=== PATIENT | male | born 1945 | race Caucasian/White ===

== ENCOUNTER 2021-07-05 12:16 | Inpatient (IN) ==
[2021-07-05 12:42] LABS: ABS Eosinophils 0.1 10^3/ul (0-0.6); ABS Lymphocytes 1.1 10^3/ul (1.0-4.8); ABS Monocytes 0.7 10^3/ul (0-0.8); ABS Neutrophils 10.6 10^3/ul (1.5-7.7); Eosinophil % 0.8 %; Hematocrit 43 % (42-52); Hemoglobin 13.6 g/dL (14.0-18.0); Lymphocyte % 8.9 %; Mean Corpuscular HGB Conc 32 g/dL (31-36); Mean Corpuscular Hemoglobin 28 pg (27-31); Mean Corpuscular Volume 89 fL (80-94); Mean Platelet Volume 9.7 fL (7.4-10.4); Platelet Count 158 10^3/uL (150-450); Red Cell Distribution Width 15 % (10-15); White Blood Count 12.5 10^3/uL (3.5-10.8)
[2021-07-05 13:28] LABS: Albumin 3.6 g/dL (3.2-5.2); Albumin/Globulin Ratio 0.9 (1-3); Calcium 9.3 mg/dL (8.6-10.3); Globulin 4.1 g/dL (2-4); Potassium 4.1 mmol/L (3.5-5.0); Total Bilirubin 0.5 mg/dL (0.2-1.0); Total Protein 7.7 g/dL (6.4-8.9); eGFR CKD-EPI 57.5 (>60)
[2021-07-05] MEDS ORDERED: Cefepime 1 GM in Dextrose 1 GM/50 ML BAG IV ONE (13:59)
[2021-07-05 14:10] LABS: High Sensitivity Troponin 1 Hr 13 pg/mL (<20)
[2021-07-05] MEDS ORDERED: NS 0.9% 1000 ml BAG 2,180 ML IV ONE (14:15)
[2021-07-05] MEDS ORDERED: NS 0.9% 250 ml 250 ML ONE (14:56)
[2021-07-05] MEDS ORDERED: Vancomycin 1,500 MG in NS 0.9% 250 ml 250 ML IVPB ONE (15:00)
[2021-07-05 16:31] LABS: Urine Appearance Cloudy; Urine Bilirubin Negative (Negative); Urine Blood 1+ (Negative); Urine Color Yellow; Urine Glucose Negative (Negative); Urine Ketones Negative (Negative); Urine Nitrite Negative (Negative); Urine Protein Negative (Negative); Urine Specific Gravity 1.015 (1.002-1.030); Urine Urobilinogen Negative (Negative)
[2021-07-05 16:40] LABS: Urine Amorphous Crystals Present (Absent); Urine Bacteria 1+ (Absent); Urine Red Blood Cell 3+(>10/hpf) (Absent); Urine Squamous Epithelial Cell Present (Absent); Urine White Blood Cell 1+(6-10/hpf) (Absent)
[2021-07-05] MEDS ORDERED: Lactated Ringers 1000 ml BAG 1,000 ML IV ONE (16:52)
[2021-07-05 17:34] LABS: Magnesium 2.6 mg/dL (1.9-2.7); Phosphorus 3.6 mg/dL (2.5-5.0)
[2021-07-05 17:49] LABS: TSH Ultra Thyroid Stim Horm 2.11 mcIU/mL (0.34-5.60)
[2021-07-05] MEDS ORDERED: Zosyn per Pharmacy NOTE FOLLOW UP SCH (18:00)
[2021-07-05] MEDS ORDERED: Vancomycin per Pharmacy 1 EA NOTE FOLLOW UP SCH (18:00)
[2021-07-05] MEDS ORDERED: Zosyn 3.375 GM IV - ED ONCE IV ONE (18:30)
[2021-07-05 20:06] LABS: Urine Osmo 599 mOsm/kg (150-1150)
[2021-07-05] MEDS: Enoxaparin 40 MG/0.4 ML SYR SUBCUT SCH (22:07)
[2021-07-05] MEDS: D5W 1/2 NS 1000 ml BAG 1,000 ML IV SCH (22:21)
[2021-07-06] MEDS: ZOSYN 3.375 GM Q8H per EXTENDED INFUSION IV SCH ×4 (00:39→23:15)
[2021-07-06 05:21] LABS: ABS Basophils 0.1 10^3/ul (0-0.2); ABS Eosinophils 0.3 10^3/ul (0-0.6); ABS Lymphocytes 1.1 10^3/ul (1.0-4.8); ABS Monocytes 0.6 10^3/ul (0-0.8); ABS Neutrophils 5.5 10^3/ul (1.5-7.7); Eosinophil % 4.1 %; Hematocrit 36 % (42-52); Hemoglobin 11.7 g/dL (14.0-18.0); Lymphocyte % 14.5 %; Mean Corpuscular HGB Conc 33 g/dL (31-36); Mean Corpuscular Hemoglobin 29 pg (27-31); Mean Corpuscular Volume 89 fL (80-94); Mean Platelet Volume 9.4 fL (7.4-10.4); Platelet Count 117 10^3/uL (150-450); Red Blood Count 4.05 10^6 /uL (4.18-5.48); Red Cell Distribution Width 15 % (10-15); White Blood Count 7.6 10^3/uL (3.5-10.8)
[2021-07-06 05:42] LABS: Calcium 8.1 mg/dL (8.6-10.3); Potassium 3.7 mmol/L (3.5-5.0); eGFR CKD-EPI 77.6 (>60)
[2021-07-06] MEDS ORDERED: Vancomycin 750 MG in NS 0.9% 250 ML IVPB SCH (06:30)
[2021-07-06] MEDS: D5W 1/2 NS 1000 ml BAG 1,000 ML IV SCH ×2 (08:17→19:13)
[2021-07-06] MEDS: Amantadine SOLN ORALSYR 10 mg/ml PO SCH ×2 (10:12→21:49)
[2021-07-06] MEDS: Vancomycin 1,000 MG in NS 0.9% 250 ml 250 ML IVPB SCH (18:08)
[2021-07-06] MEDS: Enoxaparin 40 MG/0.4 ML SYR SUBCUT SCH (21:44)
[2021-07-07 05:25] LABS: Hematocrit 37 % (42-52); Hemoglobin 11.9 g/dL (14.0-18.0); Mean Corpuscular HGB Conc 32 g/dL (31-36); Mean Corpuscular Hemoglobin 29 pg (27-31); Mean Corpuscular Volume 89 fL (80-94); Mean Platelet Volume 9.2 fL (7.4-10.4); Platelet Count 110 10^3/uL (150-450); Red Blood Count 4.16 10^6 /uL (4.18-5.48); Red Cell Distribution Width 14 % (10-15); White Blood Count 6.9 10^3/uL (3.5-10.8)
[2021-07-07 05:41] LABS: Phosphorus 2.6 mg/dL (2.5-5.0); Potassium 3.3 mmol/L (3.5-5.0); eGFR CKD-EPI 92.4 (>60)
[2021-07-07] MEDS: Vancomycin 1,000 MG in NS 0.9% 250 ml 250 ML IVPB SCH ×2 (05:55→17:18)
[2021-07-07] MEDS: Levothyroxine 100 MCG/5 ML VIAL IV SCH (05:55)
[2021-07-07] MEDS: KCL 20 MEQ/100 ML IVPREMIX 20 MEQ/100 ML BAG IV SCH ×3 (08:12→17:08)
[2021-07-07] MEDS: Amantadine SOLN ORALSYR 10 mg/ml PO SCH ×2 (10:22→20:57)
[2021-07-07] MEDS: ZOSYN 3.375 GM Q8H per EXTENDED INFUSION IV SCH ×2 (10:22→18:44)
[2021-07-07] MEDS: D5W 1/2 NS 1000 ml BAG 1,000 ML IV SCH (16:52)
[2021-07-07] MEDS: Enoxaparin 40 MG/0.4 ML SYR SUBCUT SCH (20:57)
[2021-07-08] MEDS: ZOSYN 3.375 GM Q8H per EXTENDED INFUSION IV SCH ×3 (00:17→16:28)
[2021-07-08] MEDS ORDERED: Vancomycin Trough Check NOTE FOLLOW UP ONE (05:30)
[2021-07-08 06:26] LABS: ABS Basophils 0.1 10^3/ul (0-0.2); ABS Eosinophils 0.4 10^3/ul (0-0.6); ABS Lymphocytes 1.3 10^3/ul (1.0-4.8); ABS Monocytes 0.7 10^3/ul (0-0.8); ABS Neutrophils 3.7 10^3/ul (1.5-7.7); Eosinophil % 6.4 %; Hematocrit 36 % (42-52); Hemoglobin 11.8 g/dL (14.0-18.0); Lymphocyte % 20.9 %; Mean Corpuscular HGB Conc 33 g/dL (31-36); Mean Corpuscular Hemoglobin 29 pg (27-31); Mean Corpuscular Volume 88 fL (80-94); Mean Platelet Volume 9.3 fL (7.4-10.4); Platelet Count 110 10^3/uL (150-450); Red Blood Count 4.13 10^6 /uL (4.18-5.48); Red Cell Distribution Width 14 % (10-15); White Blood Count 6.1 10^3/uL (3.5-10.8)
[2021-07-08 06:51] LABS: Calcium 7.9 mg/dL (8.6-10.3); Magnesium 1.9 mg/dL (1.9-2.7); Potassium 3.3 mmol/L (3.5-5.0); eGFR CKD-EPI 92.4 (>60)
[2021-07-08] MEDS ORDERED: Magnesium Sulfate IV 1GM/100ML 1 GM/100 ML BAG IV ONE (06:54)
[2021-07-08] MEDS: Vancomycin 1,000 MG in NS 0.9% 250 ml 250 ML IVPB SCH ×2 (07:00→18:15)
[2021-07-08] MEDS: Levothyroxine 100 MCG/5 ML VIAL IV SCH (07:05)
[2021-07-08] MEDS: KCL 20 MEQ/100 ML IVPREMIX 20 MEQ/100 ML BAG IV SCH ×3 (08:25→12:11)
[2021-07-08] MEDS: Amantadine SOLN ORALSYR 10 mg/ml PO SCH ×2 (08:25→19:42)
[2021-07-08] MEDS ORDERED: D5W 1000 ml BAG 1,000 ML IV SCH (09:00)
[2021-07-08 15:17] LABS: Calcium 8.1 mg/dL (8.6-10.3); Potassium 4.2 mmol/L (3.5-5.0); eGFR CKD-EPI 90.5 (>60)
[2021-07-08] MEDS: Nystatin SUSPENSION 100,000 UNITS/ML UDC PO SCH ×2 (16:30→19:42)
[2021-07-08] MEDS: D5W 1000 ml BAG 1,000 ML IV SCH (17:51)
[2021-07-08] MEDS: Enoxaparin 40 MG/0.4 ML SYR SUBCUT SCH (19:42)
[2021-07-09 01:03] LABS: Calcium 7.9 mg/dL (8.6-10.3); Magnesium 2.1 mg/dL (1.9-2.7); Potassium 3.6 mmol/L (3.5-5.0); eGFR CKD-EPI 90.2 (>60)
[2021-07-09] MEDS: ZOSYN 3.375 GM Q8H per EXTENDED INFUSION IV SCH ×3 (01:10→16:48)
[2021-07-09] MEDS: Vancomycin 750 MG in NS 0.9% 250 ML IVPB SCH ×2 (06:23→18:01)
[2021-07-09] MEDS: Levothyroxine 100 MCG/5 ML VIAL IV SCH (06:23)
[2021-07-09 08:02] LABS: Calcium 7.8 mg/dL (8.6-10.3); Phosphorus 2.8 mg/dL (2.5-5.0); Potassium 3.5 mmol/L (3.5-5.0); eGFR CKD-EPI 90.2 (>60)
[2021-07-09 08:08] LABS: PCO2 Arterial 31 mmHg (35-45); PO2 Arterial 85 mmHg (80-100)
[2021-07-09 08:09] LABS: ABS Basophils 0.1 10^3/ul (0-0.2); ABS Eosinophils 0.3 10^3/ul (0-0.6); ABS Lymphocytes 1.4 10^3/ul (1.0-4.8); ABS Monocytes 0.6 10^3/ul (0-0.8); ABS Neutrophils 3.5 10^3/ul (1.5-7.7); Eosinophil % 5.9 %; Hematocrit 33 % (42-52); Hemoglobin 10.9 g/dL (14.0-18.0); Lymphocyte % 23.2 %; Mean Corpuscular HGB Conc 33 g/dL (31-36); Mean Corpuscular Hemoglobin 29 pg (27-31); Mean Corpuscular Volume 88 fL (80-94); Mean Platelet Volume 9.4 fL (7.4-10.4); Platelet Count 97 10^3/uL (150-450); Red Cell Distribution Width 14 % (10-15); White Blood Count 5.9 10^3/uL (3.5-10.8)
[2021-07-09] MEDS: D5W 1000 ml BAG 1,000 ML IV SCH (10:20)
[2021-07-09] MEDS: KCL 20 MEQ/100 ML IVPREMIX 20 MEQ/100 ML BAG IV SCH ×2 (10:20→14:30)
[2021-07-09] MEDS: Nystatin SUSPENSION 100,000 UNITS/ML UDC PO SCH ×4 (10:21→21:37)
[2021-07-09] MEDS: Amantadine SOLN ORALSYR 10 mg/ml PO SCH ×2 (10:21→21:37)
[2021-07-09] MEDS: Enoxaparin 40 MG/0.4 ML SYR SUBCUT SCH (21:37)
[2021-07-10] MEDS: ZOSYN 3.375 GM Q8H per EXTENDED INFUSION IV SCH ×4 (00:39→23:45)
[2021-07-10] MEDS: Levothyroxine 100 MCG/5 ML VIAL IV SCH (04:58)
[2021-07-10] MEDS: Vancomycin 750 MG in NS 0.9% 250 ML IVPB SCH ×2 (05:31→17:38)
[2021-07-10 05:35] LABS: ABS Basophils 0.1 10^3/ul (0-0.2); ABS Eosinophils 0.4 10^3/ul (0-0.6); ABS Lymphocytes 1.5 10^3/ul (1.0-4.8); ABS Monocytes 0.8 10^3/ul (0-0.8); ABS Neutrophils 5.7 10^3/ul (1.5-7.7); Eosinophil % 4.6 %; Hematocrit 38 % (42-52); Hemoglobin 12.6 g/dL (14.0-18.0); Lymphocyte % 18.1 %; Mean Corpuscular HGB Conc 33 g/dL (31-36); Mean Corpuscular Hemoglobin 28 pg (27-31); Mean Corpuscular Volume 86 fL (80-94); Nucleated Red Blood Cells % 0.1; Platelet Count 100 10^3/uL (150-450); Red Blood Count 4.44 10^6 /uL (4.18-5.48); Red Cell Distribution Width 14 % (10-15); White Blood Count 8.5 10^3/uL (3.5-10.8)
[2021-07-10 05:57] LABS: Calcium 8.2 mg/dL (8.6-10.3); Magnesium 1.9 mg/dL (1.9-2.7); Phosphorus 2.8 mg/dL (2.5-5.0); Potassium 3.9 mmol/L (3.5-5.0); eGFR CKD-EPI 91.4 (>60)
[2021-07-10] MEDS ORDERED: Magnesium Sulfate IV 1GM/100ML 1 GM/100 ML BAG IV ONE (07:02)
[2021-07-10] MEDS ORDERED: NS 0.9% 1000 ml BAG 1,000 ML IV ONE (10:10)
[2021-07-10 10:13] LABS: Hematocrit 36 % (42-52); Hemoglobin 11.9 g/dL (14.0-18.0); Mean Corpuscular HGB Conc 33 g/dL (31-36); Mean Corpuscular Hemoglobin 28 pg (27-31); Mean Corpuscular Volume 86 fL (80-94); Mean Platelet Volume 9.6 fL (7.4-10.4); Platelet Count 100 10^3/uL (150-450); Red Blood Count 4.21 10^6 /uL (4.18-5.48); Red Cell Distribution Width 14 % (10-15); White Blood Count 9.3 10^3/uL (3.5-10.8)
[2021-07-10] MEDS: Amantadine SOLN ORALSYR 10 mg/ml PO SCH ×2 (10:23→20:29)
[2021-07-10] MEDS: Nystatin SUSPENSION 100,000 UNITS/ML UDC PO SCH ×4 (10:24→20:35)
[2021-07-10 11:05] LABS: RPR Nonreactive (Nonreactive)
[2021-07-10] MEDS ORDERED: Sodium Phosphate ADULT ENEMA 133 ML BTL PR ONE (11:30)
[2021-07-10] MEDS ORDERED: fentaNYL 100 mcg/2 ml 50 MCG/ML VIAL ONE (14:01)
[2021-07-10] MEDS ORDERED: Midazolam 10 mg/10 ml VIAL 1 mg/ml 10 ml VIAL (10 mg) ONE (14:01)
[2021-07-10 15:54] LABS: Hematocrit 36 % (42-52); Hemoglobin 11.5 g/dL (14.0-18.0); Mean Corpuscular HGB Conc 32 g/dL (31-36); Mean Corpuscular Hemoglobin 28 pg (27-31); Mean Corpuscular Volume 88 fL (80-94); Mean Platelet Volume 9.3 fL (7.4-10.4); Platelet Count 111 10^3/uL (150-450); Red Blood Count 4.07 10^6 /uL (4.18-5.48); Red Cell Distribution Width 14 % (10-15); White Blood Count 11.8 10^3/uL (3.5-10.8)
[2021-07-10] MEDS ORDERED: Polyethylene Glycol 3350 17 GM PACKET PO SCH (21:00)
[2021-07-10] MEDS: Magnesium Hydroxide LIQ 30 ML UDC PO SCH (23:20)
[2021-07-11] MEDS: Levothyroxine 100 MCG/5 ML VIAL IV SCH (05:15)
[2021-07-11] MEDS ORDERED: Vancomycin Trough Check NOTE FOLLOW UP ONE (05:30)
[2021-07-11 05:32] LABS: Hematocrit 29 % (42-52); Hemoglobin 9.5 g/dL (14.0-18.0); Mean Corpuscular HGB Conc 33 g/dL (31-36); Mean Corpuscular Hemoglobin 29 pg (27-31); Mean Corpuscular Volume 86 fL (80-94); Mean Platelet Volume 9.7 fL (7.4-10.4); Platelet Count 93 10^3/uL (150-450); Red Blood Count 3.33 10^6 /uL (4.18-5.48); Red Cell Distribution Width 14 % (10-15); White Blood Count 7.6 10^3/uL (3.5-10.8)
[2021-07-11 06:02] LABS: Calcium 7.8 mg/dL (8.6-10.3); Magnesium 2.1 mg/dL (1.9-2.7); Phosphorus 2.7 mg/dL (2.5-5.0); Potassium 3.8 mmol/L (3.5-5.0); eGFR CKD-EPI 83.5 (>60)
[2021-07-11] MEDS: ZOSYN 3.375 GM Q8H per EXTENDED INFUSION IV SCH ×3 (09:17→23:25)
[2021-07-11] MEDS: Magnesium Hydroxide LIQ 30 ML UDC PO SCH ×2 (09:21→20:29)
[2021-07-11] MEDS: Nystatin SUSPENSION 100,000 UNITS/ML UDC PO SCH ×4 (09:21→20:29)
[2021-07-11] MEDS: Amantadine SOLN ORALSYR 10 mg/ml PO SCH ×2 (09:21→20:29)
[2021-07-12] MEDS: Levothyroxine 100 MCG/5 ML VIAL IV SCH (05:16)
[2021-07-12 05:33] LABS: Hematocrit 29 % (42-52); Hemoglobin 9.5 g/dL (14.0-18.0); Mean Corpuscular HGB Conc 33 g/dL (31-36); Mean Corpuscular Hemoglobin 29 pg (27-31); Mean Corpuscular Volume 87 fL (80-94); Mean Platelet Volume 9.6 fL (7.4-10.4); Platelet Count 79 10^3/uL (150-450); Red Blood Count 3.33 10^6 /uL (4.18-5.48); Red Cell Distribution Width 14 % (10-15); White Blood Count 5.4 10^3/uL (3.5-10.8)
[2021-07-12] MEDS: ZOSYN 3.375 GM Q8H per EXTENDED INFUSION IV SCH (07:58)
[2021-07-12] MEDS: Nystatin SUSPENSION 100,000 UNITS/ML UDC PO SCH (07:59)
[2021-07-12] MEDS: Magnesium Hydroxide LIQ 30 ML UDC PO SCH (07:59)
[2021-07-12] MEDS: Amantadine SOLN ORALSYR 10 mg/ml PO SCH (07:59)
[2021-07-12 11:39] VITALS: BP 123/69
[2021-07-12 15:23] LABS: T.Pallidum TP-PA Negative (Negative)
== END 2021-07-12 14:20 | DRG 177 ==
LOC: ED 12:16 → SUATTDRO 15:39 → MED 15:39
PROVIDERS: ADMIT Internal Medicine; ATTEND Internal Medicine

== ENCOUNTER 2021-07-20 20:47 | Inpatient (IN) ==
[2021-07-20 21:47] LABS: ABS Lymphocytes 0.9 10^3/ul (1.0-4.8); ABS Monocytes 0.6 10^3/ul (0-0.8); ABS Neutrophils 5.4 10^3/ul (1.5-7.7); Eosinophil % 0.4 %; Hematocrit 33 % (42-52); Hemoglobin 10.3 g/dL (14.0-18.0); Lymphocyte % 12.6 %; Mean Corpuscular HGB Conc 31 g/dL (31-36); Mean Corpuscular Hemoglobin 27 pg (27-31); Mean Corpuscular Volume 87 fL (80-94); Mean Platelet Volume 8.7 fL (7.4-10.4); Nucleated Red Blood Cells % 0.1; Platelet Count 189 10^3/uL (150-450); Red Blood Count 3.82 10^6 /uL (4.18-5.48); Red Cell Distribution Width 16 % (10-15); White Blood Count 6.9 10^3/uL (3.5-10.8)
[2021-07-20 21:51] LABS: Urine Appearance Turbid; Urine Bilirubin Negative (Negative); Urine Blood 2+ (Negative); Urine Color Yellow; Urine Glucose Negative (Negative); Urine Ketones Negative (Negative); Urine Nitrite Negative (Negative); Urine Protein 1+(30 mg/dL) (Negative); Urine Specific Gravity 1.018 (1.002-1.030); Urine Urobilinogen Negative (Negative)
[2021-07-20 21:56] LABS: Activated Partial Thrombo Time 29.4 seconds (26.0-38.0); INR 1.45 (0.86-1.15)
[2021-07-20 22:12] LABS: Urine Bacteria Absent (Absent); Urine Red Blood Cell 3+(>10/hpf) (Absent); Urine Squamous Epithelial Cell Present (Absent); Urine Uric Acid Crystals Present (Absent); Urine White Blood Cell Trace(0-5/hpf) (Absent)
[2021-07-20 22:33] LABS: Albumin 2.7 g/dL (3.2-5.2); Albumin/Globulin Ratio 0.8 (1-3); C Reactive Protein 221.51 mg/L (<8.01); Calcium 8.3 mg/dL (8.6-10.3); Globulin 3.6 g/dL (2-4); Potassium 3.9 mmol/L (3.5-5.0); Total Bilirubin 0.3 mg/dL (0.2-1.0); Total Protein 6.3 g/dL (6.4-8.9); eGFR CKD-EPI 75.8 (>60)
[2021-07-20] MEDS ORDERED: Vancomycin 1,000 MG in NS 0.9% 250 ml 250 ML IVPB ONE (23:02)
[2021-07-20] MEDS ORDERED: Piperacillin/Tazobac ADVAN 3.375 GM in NS 0.9% 100 ml BAG 100 ML IV ONE (23:02)
[2021-07-20 23:05] LABS: High Sensitivity Troponin 1 Hr 18 pg/mL (<20)
[2021-07-21] MEDS ORDERED: Ondansetron 4 mg VIAL 2 MG/ML 2 ml VIAL IV PRN (02:26)
[2021-07-21] MEDS ORDERED: Vancomycin per Pharmacy 1 EA NOTE FOLLOW UP SCH (03:00)
[2021-07-21] MEDS ORDERED: D5W 1/2 NS 1000 ml BAG 1,000 ML IV SCH (03:00)
[2021-07-21] MEDS ORDERED: Cefepime 1 GM IV - ED ONCE IV ONE (03:00)
[2021-07-21] MEDS ORDERED: Morphine ORAL CONCENTRATE 5 MG/0.25 ML ORAL.SYRIN PO PRN (03:21)
[2021-07-21 12:01] LABS: ABS Neutrophils 8.3 10^3/ul (1.5-7.7); Hematocrit 33 % (42-52); Hemoglobin 10.2 g/dL (14.0-18.0); Mean Corpuscular HGB Conc 31 g/dL (31-36); Mean Corpuscular Hemoglobin 28 pg (27-31); Mean Corpuscular Volume 88 fL (80-94); Red Blood Count 3.68 10^6 /uL (4.18-5.48); Red Cell Distribution Width 16 % (10-15); White Blood Count 9.9 10^3/uL (3.5-10.8)
[2021-07-21 12:02] LABS: ABS Lymphocytes 0.8 10^3/ul (1.0-4.8); ABS Monocytes 0.7 10^3/ul (0-0.8)
[2021-07-21 12:03] LABS: Eosinophil % 0.2 %; Lymphocyte % 7.8 %
[2021-07-21 12:27] LABS: Blood Urea Nitrogen 30 mg/dL (6-24); CO2 Carbon Dioxide 27 mmol/L (22-32); Calcium 8.5 mg/dL (8.6-10.3); Glucose 83 mg/dL (70-100); eGFR CKD-EPI 80.4 (>60)
[2021-07-21 12:43] LABS: Anion Gap 9 mmol/L (2-11); Chloride 112 mmol/L (101-111); Sodium 148 mmol/L (135-145)
[2021-07-21 12:55] LABS: Platelet Count Platelets clumped. 10^3/uL (150-450)
[2021-07-21 13:59] LABS: Calcium 8.4 mg/dL (8.6-10.3); Potassium 4.1 mmol/L (3.5-5.0); eGFR CKD-EPI 79.5 (>60)
[2021-07-21 14:43] LABS: Calcium 8.5 mg/dL (8.6-10.3); Potassium 3.9 mmol/L (3.5-5.0); eGFR CKD-EPI 78.5 (>60)
[2021-07-21] MEDS: Cefepime 1 GM in Dextrose 1 GM/50 ML BAG IV SCH (15:10)
[2021-07-21] MEDS: NS 0.45% 1000 ml BAG 1,000 ML IV SCH ×2 (15:44→20:05)
[2021-07-21] MEDS: Vancomycin 750 MG in NS 0.9% 250 ML IVPB SCH (20:00)
[2021-07-21] MEDS ORDERED: Enoxaparin 40 MG/0.4 ML SYR SUBCUT SCH (21:00)
[2021-07-21 23:29] LABS: Blood Urea Nitrogen 26 mg/dL (6-24); CO2 Carbon Dioxide 27 mmol/L (22-32); Glucose 96 mg/dL (70-100); eGFR CKD-EPI 80.4 (>60)
[2021-07-21 23:38] LABS: Anion Gap 8 mmol/L (2-11); Chloride 113 mmol/L (101-111); Sodium 148 mmol/L (135-145)
[2021-07-22] MEDS: Cefepime 1 GM in Dextrose 1 GM/50 ML BAG IV SCH ×2 (03:50→15:03)
[2021-07-22] MEDS: Vancomycin 750 MG in NS 0.9% 250 ML IVPB SCH ×2 (04:05→16:36)
[2021-07-22 05:23] LABS: ABS Lymphocytes 1.1 10^3/ul (1.0-4.8); ABS Monocytes 0.9 10^3/ul (0-0.8); ABS Neutrophils 10.3 10^3/ul (1.5-7.7); Eosinophil % 0.4 %; Hematocrit 32 % (42-52); Hemoglobin 10.2 g/dL (14.0-18.0); Lymphocyte % 8.5 %; Mean Corpuscular HGB Conc 32 g/dL (31-36); Mean Corpuscular Hemoglobin 27 pg (27-31); Mean Corpuscular Volume 87 fL (80-94); Mean Platelet Volume 8.4 fL (7.4-10.4); Platelet Count 228 10^3/uL (150-450); Red Blood Count 3.73 10^6 /uL (4.18-5.48); Red Cell Distribution Width 16 % (10-15); White Blood Count 12.3 10^3/uL (3.5-10.8)
[2021-07-22 05:43] LABS: Calcium 8.2 mg/dL (8.6-10.3); Potassium 3.4 mmol/L (3.5-5.0); eGFR CKD-EPI 90.5 (>60)
[2021-07-22] MEDS: Levothyroxine 100 MCG/5 ML VIAL IV SCH (06:05)
[2021-07-22] MEDS: NS 0.45% 1000 ml BAG 1,000 ML IV SCH (15:03)
[2021-07-22] MEDS: D5W 1000 ml BAG 1,000 ML IV SCH (18:07)
[2021-07-22] MEDS ORDERED: Morphine 2 MG/ML SYRINGE IV PRN (19:40)
[2021-07-23] MEDS: Cefepime 1 GM in Dextrose 1 GM/50 ML BAG IV SCH ×2 (03:44→17:14)
[2021-07-23 06:00] LABS: ABS Eosinophils 0.2 10^3/ul (0-0.6); ABS Lymphocytes 1.1 10^3/ul (1.0-4.8); ABS Monocytes 0.7 10^3/ul (0-0.8); ABS Neutrophils 7.5 10^3/ul (1.5-7.7); Eosinophil % 1.6 %; Hematocrit 29 % (42-52); Hemoglobin 9.3 g/dL (14.0-18.0); Mean Corpuscular HGB Conc 32 g/dL (31-36); Mean Corpuscular Hemoglobin 28 pg (27-31); Mean Corpuscular Volume 87 fL (80-94); Mean Platelet Volume 8.2 fL (7.4-10.4); Platelet Count 206 10^3/uL (150-450); Red Cell Distribution Width 15 % (10-15); White Blood Count 9.5 10^3/uL (3.5-10.8)
[2021-07-23] MEDS: Levothyroxine 100 MCG/5 ML VIAL IV SCH (06:34)
[2021-07-23] MEDS: Vancomycin 750 MG in NS 0.9% 250 ML IVPB SCH ×3 (06:34→20:24)
[2021-07-23] MEDS: D5W 1000 ml BAG 1,000 ML IV SCH (06:38)
[2021-07-23 06:45] LABS: Calcium 7.7 mg/dL (8.6-10.3); Potassium 3.2 mmol/L (3.5-5.0); eGFR CKD-EPI 97.3 (>60)
[2021-07-23] MEDS: KCL 20 MEQ/100 ML IVPREMIX 20 MEQ/100 ML BAG IV SCH ×2 (12:28→17:14)
[2021-07-23] MEDS ORDERED: Vancomycin Trough Check NOTE FOLLOW UP ONE (15:30)
[2021-07-24] MEDS: Cefepime 1 GM in Dextrose 1 GM/50 ML BAG IV SCH ×2 (02:49→16:50)
[2021-07-24 06:56] LABS: ABS Eosinophils 0.2 10^3/ul (0-0.6); ABS Lymphocytes 1.3 10^3/ul (1.0-4.8); ABS Monocytes 0.6 10^3/ul (0-0.8); ABS Neutrophils 7.7 10^3/ul (1.5-7.7); Eosinophil % 1.9 %; Hematocrit 28 % (42-52); Hemoglobin 9.2 g/dL (14.0-18.0); Lymphocyte % 13.1 %; Mean Corpuscular HGB Conc 33 g/dL (31-36); Mean Corpuscular Hemoglobin 28 pg (27-31); Mean Corpuscular Volume 85 fL (80-94); Mean Platelet Volume 8.2 fL (7.4-10.4); Platelet Count 194 10^3/uL (150-450); Red Blood Count 3.28 10^6 /uL (4.18-5.48); Red Cell Distribution Width 15 % (10-15); White Blood Count 9.7 10^3/uL (3.5-10.8)
[2021-07-24 07:28] LABS: Calcium 7.7 mg/dL (8.6-10.3); Potassium 3.6 mmol/L (3.5-5.0); eGFR CKD-EPI 100.9 (>60)
[2021-07-24] MEDS: Levothyroxine 100 MCG/5 ML VIAL IV SCH (09:00)
[2021-07-24] MEDS: Vancomycin 750 MG in NS 0.9% 250 ML IVPB SCH ×2 (09:06→18:46)
[2021-07-25] MEDS: Cefepime 1 GM in Dextrose 1 GM/50 ML BAG IV SCH ×3 (06:05→17:22)
[2021-07-25] MEDS: Vancomycin 750 MG in NS 0.9% 250 ML IVPB SCH (07:34)
[2021-07-25] MEDS ORDERED: Morphine ORAL CONCENTRATE 5 MG/0.25 ML ORAL.SYRIN SL PRN (17:54)
[2021-07-25] MEDS ORDERED: Ondansetron ODT 4 mg TAB 4 MG TAB SL PRN (17:56)
[2021-07-25] MEDS: Amoxicillin/Clavul ORALSYR 80 MG/ML (400 MG/5 ML) PO SCH (20:05)
[2021-07-26 01:52] VITALS: BP 129/55
[2021-07-26] MEDS ORDERED: Vancomycin Trough Check NOTE FOLLOW UP ONE (05:30)
[2021-07-26] MEDS ORDERED: Albuterol HFA INHALER 8 gm MDI INH PRN (07:36)
[2021-07-26] MEDS: Amoxicillin/Clavul ORALSYR 80 MG/ML (400 MG/5 ML) PO SCH (08:51)
[2021-07-26 10:48] LABS: Rapid COVID-19 Molecular Undetected (Undetected)
[2021-07-26] MEDS ORDERED: Zinc Oxide 16% PASTE (Butt Paste) 30 gm TUBE TOPICAL SCH (11:00)
== END 2021-07-26 14:10 | DRG 871 ==
LOC: ED 20:47 → SUATTDRO 07-21 02:00 → EDHOLD 07-21 02:00 → MEDTELE 07-21 18:10
PROVIDERS: ADMIT Internal Medicine; ATTEND Internal Medicine